=== PATIENT | male | born 1950 | race American Indian/Alaskan Native ===

== ENCOUNTER 2020-06-22 08:51 | Outpatient (CLI) | payer MEDICARE ==
--- NOTE | 2020-06-22 10:17 | XRay Report ---
SKELETAL SURVEY 19 images INDICATION / CLINICAL INFORMATION: MONOCLONAL GAMMOPATHY. COMPARISON: None available. FINDINGS: SKULL: No lytic or blastic lesion. C-SPINE: No lytic or blastic lesion. Incidental small bilateral cervical ribs. Moderate discogenic de generative disease C3-C6. HUMERI: No lytic or blastic lesion. CHEST: No lytic or blastic lesion. Calcified bilateral perihilar granulomas and scattered calcified p ulmonary granulomas. T-SPINE: No lytic or blastic lesion. L-SPINE: No lytic or blastic lesion. Moderate discogenic degenerative disease L3-4 and L5-S1 with mod erate facet degenerative disease L4-S1. PELVIS: No lytic or blastic lesion. Mild degenerative arthrosis left hip. FEMORA: No lytic or blastic lesion. ADDITIONAL FINDINGS: Left total knee arthroplasty. Moderate degenerative arthrosis of right knee. IMPRESSION: 1. Negative skeletal survey. Signer Name: Cristiano Najera MD Signed: 06/22/2020 10:12 AM Workstation Name: [id number]
== END 2020-06-22 08:52 | disposition home or self-care (01) ==
LOC: XRAY 08:51
PROVIDERS: ATTEND Internal Medicine Hematology & Oncology
DX: M17.11 Unilateral primary osteoarthritis, right knee (principal); M50.31 Other cervical disc degeneration, high cervical region; D47.2 Monoclonal gammopathy
CPT/HCPCS: 77074